=== PATIENT | female | born 1970 | race Caucasian/White ===

== ENCOUNTER 2020-09-01 19:38 | Emergency (ER) | payer OTHER, SELFPAY ==
[2020-09-01 19:50] VITALS: BP 156/78; PULSE 90; RESP 20; TEMP 36.6; O2SAT 98; BMI 24.3
--- NOTE | 2020-09-01 20:00 | ED.ANXIETY ---
HPI - Anxiety General Chief Complaint: Anxiety Stated Complaint: panic attack Time Seen by Provider: 09/01/20 20:00 Source: patient Mode of arrival: ambulatory Limitations: no limitations History of Present Illness HPI narrative: patient with history of anxiety /depression under lot of stress lately for last 6 months been crying all the time asking for help took Xanax 2 tablets today and still feels anxious wants to talk to crisis denies any suicidal ideation Related Data Allergies Allergy/AdvReac Type Severity Reaction Status Date / Time No Known Allergies Allergy Verified 09/01/20 21:14 Review of Systems Review of Systems: Constitutional : No Fever, No Chills ENT/Mouth : No Ear Pain, No Nasal Congestion, No sore throat Eyes: No Eye Pain, No Swelling, No Redness Cardiovascular : No Chest Pain, No SOB Respiratory : No Cough, No Sputum, No Dyspnea Gastrointestinal : No Nausea, No Vomiting, No Diarrhea, No Hematochezia, No Melena Genitourinary : No Dysuria, No Urinary Frequency, No Hematuria Musculoskeletal : No Myalgias Skin : No Skin Lesions, No rash Neuro : No Weakness, No Numbness, No Paresthesias, No Dizziness, No Headache Psych : positive Anxiety, positive Depression,negative SI/HI Heme/Lymph: No Lymphadenopathy Endocrine : No Polyuria, No Polydipsia PMFSH Past Medical History Medical History Anxiety Asthma Depression Diabetes Fibromyalgia High cholesterol Neuropathy Uterus cancer Surgical History H/O: hysterectomy Hx of cholecystectomy Social History Social History Advance Directives: No Advance Directives Information Provided: Yes Patient : No Physical Exam Vital Signs: Vital Signs: Last Vital Signs Temp 97.9 F 09/01/20 22:00 Pulse 88 09/01/20 22:00 Resp 16 09/01/20 22:00 BP 131/70 09/01/20 22:00 Pulse Ox 95 09/01/20 22:00 Body Mass Index 24.3 Const: General: comfortable and no acute distress Orientation/consciousness: patient oriented x3 HENMT: Head: Yes normocephalic Eyes: General: appearance normal, both eyes and all related structures Neck: Neck: Yes normal visual inspection Resp: Effort & Inspection: normal respiratory effort Auscultation: clear to auscultation bilaterally, no crackles, no rales and no rhonchi Cardio: Palpation: normal PMI Rate: regular rate Rhythm: regular rhythm Heart sounds: S1 normal heart sound present and S2 normal heart sound present GI: Inspection: Yes normal to inspection Palpation (GI): Soft to palpation and nontender : General: Yes no CVA tenderness Back/Spine/Pelvis: Back: no CVA tenderness Skin: General skin exam: no rashes or lesions noted Neuro: General: patient oriented x3, no focal motor deficits and CN's II-XI intact bilaterally Extrem: General: Yes normal to inspection and Yes full ROM Psych: Appearance: grossly normal Mental Status: mental status grossly normal Speech and movement: Normal speech and movement present Affect: Sad affect present and Anxious affect present Attitude: cooperative Thought process: Normal thought process present Thought content: Normal thought content present, suicidality and no homicidality Insight: Good insight present (Psych) MDM - Anxiety MDM Narrative Medical decision making narrative: patient feels safe to go home refused to stay longer to see therapist will follow-up as outpatient family at the bedside patient denies any suicidal ideation will discharge patient home Differential Diagnosis Differential diagnosis: Likely acute anxiety Discharge Plan Discharge Clinical Impression: Acute anxiety Patient Disposition: Home, Self-Care Instructions: Anxiety (ED) Additional Instructions: taking medication as prescribed. Follow-up with therapist /crisis team Interventions: ED Discharge Assessment Last Done: 09/01/20 23:02 Discharge Date/Time: 09/01/20 23:03
--- NOTE | 2020-09-01 21:59 | PC.NURSE ---
summary and face sheet faxed to [facility], called to verify.
[2020-09-01 22:00] VITALS: BP 131/70; PULSE 88; RESP 16; TEMP 36.6; O2SAT 95
== END 2020-09-01 23:03 | disposition home or self-care (01) ==
PROVIDERS: Emergency Provider Internal Medicine
DX: F41.9 Anxiety disorder, unspecified (principal); E11.9 Type 2 diabetes mellitus without complications; J45.909 Unspecified asthma, uncomplicated
CPT/HCPCS: 99283; 99284